=== PATIENT | male | born 1985 | race Caucasian/White ===

== ENCOUNTER 2017-04-03 06:23 | Emergency (ER) | payer SELFPAY ==
[~2017-04-03] VITALS: Ht 170.2 cm; Wt 109.7 kg
[~2017-04-03 06:23] MED LIST: ACET500T98
[2017-04-03 06:28] VITALS: Ht 170.2 cm; Wt 109.7 kg
[2017-04-03] MEDS ORDERED: ONDANSETRON 4 MG INJ IV STA (06:44)
[2017-04-03] MEDS ORDERED: KETOROLAC 30 MG INJ IV STA (06:44)
[2017-04-03] MEDS ORDERED: SOD CHLORIDE 0.9% 1,000 ML IV STA (06:44)
[2017-04-03 07:24] LABS: BASOPHIL # 0.1 10^3/ul (0.0-0.1); BASOPHILS % 0.4 % (0.0-2.0); EOSINOPHILS % 0.3 % (0.0-7.0); HEMATOCRIT 41.6 % (42.0-52.0); HEMOGLOBIN 14.3 g/dl (14.0-18.0); LYMPHOCYTES # 1.3 10^3/ul (0.8-2.9); MEAN CORPUSCULAR HGB CONC 34.4 g/dl (32.0-37.0); MEAN CORPUSCULAR VOLUME 84.4 fl (82.0-101.0); MEAN PLATELET VOLUME 11.2 fl (7.4-10.4); MONOCYTE # 0.6 10^3/ul (0.3-0.9); MONOCYTES % 4.8 % (0.0-11.0); NEUTROPHIL # 9.5 10^3/ul (1.6-7.5); PLATELET COUNT 238 10^3/UL (140-415); RED BLOOD COUNT 4.93 10^6/ul (4.70-6.10); RED CELL DISTRIBUTION WIDTH 12.2 % (11.5-14.5); WHITE BLOOD COUNT 11.4 10^3/ul (4.8-10.8)
[2017-04-03] MEDS ORDERED: morphine 4 MG/ML VIAL IV STA (07:29)
[2017-04-03 07:36] LABS: ADD UMIC YES; UR ASCORBIC ACID NEGATIVE (NEGATIVE); UR BILIRUBIN (Dip) NEGATIVE (NEGATIVE); UR BLOOD (Dip) NEGATIVE (NEGATIVE); UR CLARITY CLEAR (CLEAR); UR COLOR YELLOW (YELLOW); UR GLUCOSE (Dip) NEGATIVE (NEGATIVE); UR KETONES (Dip) TRACE mg/dL (NEGATIVE); UR LEUKOCYTE ESTERASE (Dip) NEGATIVE Leu/ul (NEGATIVE); UR NITRITE (Dip) NEGATIVE (NEGATIVE); UR RBC 0 /HPF (0-5); UR SPECIFIC GRAVITY (Dip) 1.032 (1.003-1.030); UR TOTAL PROTEIN (Dip) 2+ mg/dl (NEGATIVE); UR UROBILINOGEN (Dip) 1+ mg/dL (NEGATIVE)
[2017-04-03 07:44] LABS: ALBUMIN 4.1 g/dl (3.3-4.9); ALBUMIN/GLOBULIN RATIO 1.36; BILIRUBIN,INDIRECT 0.5 mg/dl (0-1.1); BILIRUBIN,TOTAL 0.5 mg/dl (0.2-1.3); CALCIUM 8.6 mg/dl (8.4-10.2); CREATININE 1.21 mg/dl (0.61-1.24); POTASSIUM 4.6 mmol/L (3.5-5.1); TOTAL PROTEIN 7.1 g/dl (6.1-8.1)
--- NOTE | 2017-04-03 08:03 | RADRPT ---
PROCEDURE: CT abdomen and pelvis without contrast. CLINICAL INDICATION: Right upper quadrant pain for 1 week TECHNIQUE: CT scan of the abdomen and pelvis without contrast was performed on a [employer] CT scanner utilizing axial imaging from the lung bases through the pubis symphysis. The patient was sc anned without intravenous contrast. Sagittal and coronal reformatted images were made. The CTDIvol is 22.97 mGy and the DLP is 1451.49 mGycm. DICOM images are available. One of the following 3 dose reduction techniques were used during this CT examination: 1) Automated exposure control 2) Adjustment of the mA +/- kV according to patient size or 3) Use of iterative reconstruction technique COMPARISON: None available FINDINGS: The lung bases are clear. The heart size is normal. No pericardial or pleural effusion is present. The visualized liver is diffusely fatty infiltrated. The visualized spleen, pancreas, and gallbladde r are normal. No evidence for intrahepatic or extrahepatic biliary ductal dilatation is noted. The bilateral adrenal glands are normal. The left kidney is normal without evidence for hydrouretero nephrosis or nephroureterolithiasis. Mild right hydroureteronephrosis is present with perinephric in flammation and stranding as well as right ray ureteral inflammation. This is secondary to a recentl y passed right renal calculus now noted in the urinary bladder. This calculus measures 2 mm in AP an d transverse dimensions. The urinary bladder is incompletely distended. The visualized bowel is nonobstructive. No evidence for diverticulosis, diverticulitis or appendicit is is present. The aorta is normal. No evidence for aneurysmal dilatation is present. No evidence for abdominal or pelvic ascites or pneumoperitoneum is present . The visualized pelvis is normal. The prostate gland is normal size. The urinary bladder is incomplet hazel distended. No evidence for masses or pathologic lymphadenopathy is present. The imaged osseous structures demonstrate mild degenerative changes the bilateral sacroiliac joints and the spine. IMPRESSION: 1. Mild right hydroureteronephrosis with perinephric and periureteral inflammation secondary to rec ently passed 2 mm calculus now in urinary bladder. 2. Mild diffuse fatty infiltration of the liver. A call report was made to Laquita Kulkarni at 04/03/2017 7:59:16 AM following the completio n of the examination by the undersigned. RPTAT: H Umesh C .Nilda Campbell MD, MD Date Time Electronically viewed and signed by .Nilda Campbell MD, MD on 04/03/2017 08:03 .C/
[2017-04-03] MEDS ORDERED: HYDR-906 PO (08:30)
[2017-04-03] MEDS ORDERED: TAMS-14 PO (08:30)
--- NOTE | 2017-04-03 09:56 | ERD ---
ER Documentation Chief Complaint Chief Complaint RUQ abd pain x 1 week worst today HPI 31-year-old male complaining of right flank pain 1 week. She states the pain has been constant but has severely worsened this morning. Has no history of kidney stones in the past. Denies shortness of breath or chest pain. Feel that he needs to pee but is unable to. Denies back pain. Denies fevers. Has episodes of vomiting. Is not taking medications for symptoms. Denies medical problems. NKDA. Clinical history: Denies. Smokes 3 cigarettes a day ROS All systems reviewed and are negative except as per history of present illness. Medications Home Meds Active Scripts Tamsulosin Hcl* (Flomax*) 0.4 Mg Cap.er.24h, 0.4 MG PO BID, #30 CAP Prov:JONES WILKS PA-C 04/03/17 Hydrocodone/Acetaminophen ([place] 5-325 Tablet) 1 Each Tablet, 1 TAB PO Q6H Y for PAIN, #7 TAB Prov:JONES WILKS PA-C 04/03/17 Reported Medications Acetaminophen (Tylenol) 500 Mg Tab 11/12/09 Allergies Allergies: Coded Allergies: No Known Drug Allergies (Verified Allergy, Mild, 11/14/09) PMhx/Soc Medical and Surgical Hx: pt denies Medical Hx, pt denies Surgical Hx History of Surgery: No Anesthesia Reaction: No Hx Neurological Disorder: No Hx Respiratory Disorders: No Hx Cardiac Disorders: No Hx Psychiatric Problems: No Hx Miscellaneous Medical Probl: No Hx Alcohol Use: Yes (socially) Hx Substance Use: No Hx Tobacco Use: Yes Smoking Status: Current every day smoker Physical Exam Vitals Vital Signs Date Time Temp Pulse Resp B/P Pulse Ox O2 Delivery O2 Flow Rate FiO2 04/03/17 06:28 97.8 72 20 146/78 98 Physical Exam GENERAL: The patient is well-appearing, well-nourished, in no acute distress HEENT: Atraumatic. Conjunctivae are pink. Pupils equal, round, and reactive to light. There is no scleral icterus. Tympanic membranes clear bilaterally. Oropharynx clear. No nystagmus or photophobia. CHEST: Clear to auscultation bilaterally. There are no rales, wheezes or rhonchi. HEART: Regular rate and rhythm. No murmurs, clicks, rubs or gallops. No S3 or S4. ABDOMEN: Tender to palpation right upper quadrant. No rebound tenderness. Normoactive bowel sounds. No distention peer BACK: No midline or flank tenderness. Result Diagram: 04/03/17 0707 04/03/17 0707 Results 24 hrs Laboratory Tests Test 04/03/17 07:07 White Blood Count 11.410^3/ul Red Blood Count 4.9310^6/ul Hemoglobin 14.3g/dl Hematocrit 41.6% Mean Corpuscular Volume 84.4fl Mean Corpuscular Hemoglobin 29.0pg Mean Corpuscular Hemoglobin Concent 34.4g/dl Red Cell Distribution Width 12.2% Platelet Count 47404^3/UL Mean Platelet Volume 11.2fl Neutrophils % 83.0% Lymphocytes % 11.0% Monocytes % 4.8% Eosinophils % 0.3% Basophils % 0.4% Nucleated Red Blood Cells % 0.0/100WBC Neutrophils # 9.510^3/ul Lymphocytes # 1.310^3/ul Monocytes # 0.610^3/ul Eosinophils # 0.010^3/ul Basophils # 0.110^3/ul Nucleated Red Blood Cells # 0.010^3/ul Urine Color YELLOW Urine Clarity CLEAR Urine pH 6.0 Urine Specific [place] 1.032 Urine Ketones TRACEmg/dL Urine Nitrite NEGATIVEmg/dL Urine Bilirubin NEGATIVEmg/dL Urine Urobilinogen 1+mg/dL Urine Leukocyte Esterase NEGATIVELeu/ul Urine Microscopic RBC 0/HPF Urine Microscopic WBC 1/HPF Urine Hemoglobin NEGATIVEmg/dL Urine Glucose NEGATIVEmg/dL Urine Total Protein 2+mg/dl Sodium Level 140mmol/L Potassium Level 4.6mmol/L Chloride Level 104mmol/L Carbon Dioxide Level 24mmol/L Anion Gap 17 Blood Urea Nitrogen 20mg/dl Creatinine 1.21mg/dl Glucose Level 134mg/dl Calcium Level 8.6mg/dl Total Bilirubin 0.5mg/dl Direct Bilirubin 0.00mg/dl Indirect Bilirubin 0.5mg/dl Aspartate Amino Transf (AST/SGOT) 44IU/L Alanine Aminotransferase (ALT/SGPT) 48IU/L Alkaline Phosphatase 72IU/L Total Protein 7.1g/dl Albumin 4.1g/dl Globulin 3.00g/dl Albumin/Globulin Ratio 1.36 Lipase 88U/L Current Medications Medications (Trade) Dose Ordered Sig/Lam Route PRN Reason Start Time Stop Time Status Last Admin Dose Admin Sodium Chloride (NS) 1,000 ml @ 1,000 mls/hr Q1H STAT IV 04/03/17 06:44 04/03/17 07:43 DC 04/03/17 06:54 Ondansetron HCl (Zofran Inj) 4 mg ONCE STAT IV 04/03/17 06:44 04/03/17 06:45 DC 04/03/17 06:53 Ketorolac Tromethamine (Toradol) 30 mg ONCE STAT IV 04/03/17 06:44 04/03/17 06:45 DC 04/03/17 06:53 Morphine Sulfate (morphine) 4 mg ONCE STAT IV 04/03/17 07:29 04/03/17 07:30 DC Procedures/MDM DIAGNOSTIC IMAGING REPORT Patient: JOSHUA CHILDRESS : 1985 Age: 31 Sex: M MR #: [id number] DOS: 04/03/17 0644 Ordering MD: HUSSAIN WILKS PA-C Location: [facility] Room/Bed: PROCEDURE: CT abdomen and pelvis without contrast. CLINICAL INDICATION: Right upper quadrant pain for 1 week TECHNIQUE: CT scan of the abdomen and pelvis without contrast was performed on a [employer] CT scanner utilizing axial imaging from the lung bases through the pubis symphysis. The patient was scanned without intravenous contrast. Sagittal and coronal reformatted images were made. The CTDIvol is 22.97 mGy and the DLP is 1451.49 mGycm. DICOM images are available. One of the following 3 dose reduction techniques were used during this CT examination: 1) Automated exposure control 2) Adjustment of the mA +/- kV according to patient size or 3) Use of iterative reconstruction technique COMPARISON: None available FINDINGS: The lung bases are clear. The heart size is normal. No pericardial or pleural effusion is present. The visualized liver is diffusely fatty infiltrated. The visualized spleen, pancreas, and gallbladder are normal. No evidence for intrahepatic or extrahepatic biliary ductal dilatation is noted. The bilateral adrenal glands are normal. The left kidney is normal without evidence for hydroureteronephrosis or nephroureterolithiasis. Mild right hydroureteronephrosis is present with perinephric inflammation and stranding as well as right ray ureteral inflammation. This is secondary to a recently passed right renal calculus now noted in the urinary bladder. This calculus measures 2 mm in AP and transverse dimensions. The urinary bladder is incompletely distended. The visualized bowel is nonobstructive. No evidence for diverticulosis, diverticulitis or appendicitis is present. The aorta is normal. No evidence for aneurysmal dilatation is present. No evidence for abdominal or pelvic ascites or pneumoperitoneum is present . The visualized pelvis is normal. The prostate gland is normal size. The urinary bladder is incompletely distended. No evidence for masses or pathologic lymphadenopathy is present. The imaged osseous structures demonstrate mild degenerative changes the bilateral sacroiliac joints and the spine. IMPRESSION: 1. Mild right hydroureteronephrosis with perinephric and periureteral inflammation secondary to recently passed 2 mm calculus now in urinary bladder. 2. Mild diffuse fatty infiltration of the liver. ER Course: 1L NS and toradol and morphine with zofran given in ED MDM: 31 yr old male complaining of flank pain. I have low suspicion for septic stone I have low suspicion for pyelonephritis. Patient's done past which is likely causing hydroureteronephrosis however patient's BUN and creatinine are within normal limits. Patient's urine is within normal limits. Patient's pain is well controlled in the emergency room. Case was reviewed with Dr. Hooks prior to discharge. Patient's pain is likely associated with nephrolithiasis which has passed out of the ureters. Patient will be discharged with strong pain medication and Flomax with strict ER precautions. All questions were answered at discharge. I have low suspicion for other acute abdominal emergencies at this time. Patient will follow up with PMD and return to the ER if symptoms change or worsen. Departure Diagnosis: Primary Impression: Kidney stone Condition: Stable Patient Instructions: Kidney Stone (Urine) Referrals: COMMUNITY CLINICS YOU HAVE RECEIVED A MEDICAL SCREENING EXAM AND THE RESULTS INDICATE THAT YOU DO NOT HAVE A CONDITION THAT REQUIRES URGENT TREATMENT IN THE EMERGENCY DEPARTMENT. FURTHER EVALUATION AND TREATMENT OF YOUR CONDITION CAN WAIT UNTIL YOU ARE SEEN IN YOUR DOCTORS OFFICE WITHIN THE NEXT 1-2 DAYS. IT IS YOUR RESPONSIBILITY TO MAKE AN APPOINTMENT FOR FOLOW-UP CARE. IF YOU HAVE A PRIMARY DOCTOR --you should call your primary doctor and schedule an appointment IF YOU DO NOT HAVE A PRIMARY DOCTOR YOU CAN CALL OUR PHYSICIAN REFERRAL HOTLINE AT IF YOU CAN NOT AFFORD TO SEE A PHYSICIAN YOU CAN CHOSE FROM THE FOLLOWING [facility] CL[facility] [id number] [facility] [address] [facility] [phone] [facility] [address] [facility] [phone] [id number] [facility]. [facility]. [address] Additional Instructions: FOLLOW UP WITH YOUR PRIMARY CARE PHYSICIAN TOMORROW.Return to this facility if you are not improving as expected. JONES WILKS PA-C Apr 03, 2017 09:56
== END 2017-04-03 09:40 | disposition home or self-care (01) ==
LOC: FTE 06:23
DX: N20.0 Calculus of kidney (principal); F17.210 Nicotine dependence, cigarettes, uncomplicated
CPT/HCPCS: 36415; 74176; 80053; 81001; 83690; 85025; 96374; 96375; 99285; J1885; J2405; J7030